=== PATIENT | male | born 1955 | race Caucasian/White ===

== ENCOUNTER → 2017-11-06 07:53 | Outpatient (CLI) | payer MEDICAID, SELFPAY ==
--- NOTE | 2017-11-06 07:55 | CI_ITS ---
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 IMPRESSIONS 1. The bilateral vertebral arteries are patent with normal antegrade flow. 2. Study suggests less than 20% stenosis involving the right internal carotid artery. 3. Study suggests 20-49% stenosis involving the left internal carotid artery. History: Risk factors: Current tobacco use. Hypertension. Hyperlipidemia. Carotid duplex study. Complete study and Doppler flow study including spectral analysis, color and parra scale imaging. Location: Vascular laboratory. Patient status: Outpatient. Tables: Arterial flow: + +--------+--------+ Location V sys V ed + +--------+--------+ Right CCA - proximal 103cm/s 18.9cm/s + +--------+--------+ Right CCA - distal 97.8cm/s 24.4cm/s + +--------+--------+ Right ECA 153cm/s -------- + +--------+--------+ Right ICA - proximal 101cm/s 33.8cm/s + +--------+--------+ Right ICA - mid 118cm/s 39.3cm/s + +--------+--------+ Right ICA - distal 128cm/s 40.1cm/s + +--------+--------+ Right vertebral 78.6cm/s -------- + +--------+--------+ Left CCA - proximal 106cm/s 22.8cm/s + +--------+--------+ Left CCA - distal 108cm/s 31.4cm/s + +--------+--------+ Left ECA 117cm/s -------- + +--------+--------+ Left ICA - proximal 106cm/s 30.6cm/s + +--------+--------+ Left ICA - mid 116cm/s 33cm/s + +--------+--------+ Left ICA - distal 123cm/s 37.7cm/s + +--------+--------+ Left vertebral 88cm/s -------- + +--------+--------+ Velocity ratios: + + + + + + Right, V sys Right, V ed Left, V sys Left, V ed + + + + + + Max ICA/dist CCA 1.31 1.64 1.14 1.2 + + + + + + (Report amended ) Electronically signed by: James Ledbetter [id number]
== END ==
PROVIDERS: Family Provider Family Medicine; PCP Nurse Practitioner; Visit Provider Internal Medicine
DX: R42 Dizziness and giddiness (principal); I65.29 Occlusion and stenosis of unspecified carotid artery; R07.89 Other chest pain; R06.09 Other forms of dyspnea
CPT/HCPCS: 93306; 93880